=== PATIENT | female | born 1950 | race Caucasian/White ===

== ENCOUNTER 2016-05-26 09:59 | Outpatient (CLI) | payer MEDICARE | END 2016-05-26 10:00 | disposition home or self-care (01) | DX: M85.80 Other specified disorders of bone density and structure, unspecified site (principal) ==

== ENCOUNTER 2016-08-24 10:09 | Outpatient (CLI) | payer MEDICARE | END 2016-08-24 10:10 | disposition home or self-care (01) | DX: M51.34 Other intervertebral disc degeneration, thoracic region (principal); M41.84 Other forms of scoliosis, thoracic region ==

== ENCOUNTER 2016-11-02 12:54 | Outpatient (CLI) | payer MEDICARE ==
--- NOTE | 2016-11-03 11:46 | DEXA Report ---
DEXA SCAN: 11/02/2016 CLINICAL INDICATION: Osteopenia. TECHNIQUE: Dual energy x-ray absorptiometry (DXA) was performed on a [employer] system. Regions measured are the AP spine, femoral neck, and, if needed, forearm. COMPARISON: None. In accordance with the International Society for Clinical Densitometry (ISCD) guidelines, data from previous exams may be reanalyzed using current recommendations and techniques. This is done to allow a more accurate basis for comparison with the current study. FINDINGS: The data for the lumbar spine is as follows: REGION BMD (g/cm/cm) T-SCORE Z-SCORE L1 0.783 -2.9 -1.6 L2 0.963 -2.0 -0.7 L3 0.936 -2.2 -0.9 L4 0.984 -1.8 -0.5 TOTAL 0.923 -2.1 -0.8 NOTE: All evaluable vertebrae are used for classification. The data for the hip is as follows: REGION BMD (g/cm/cm) T-SCORE Z-SCORE Neck 0.839 -1.4 -0.1 TOTAL 0.835 -1.4 -0.3 NOTE: The femoral neck or total proximal femur, whichever is lowest, is used for classification. IMPRESSION: THE WHO CLASSIFICATION BASED ON THE INTERNATIONAL REFERENCE STANDARD IS OSTEOPENIA. THE FRACTURE RISK IS INCREASED. RECOMMENDATION: Patients with diagnosis of osteoporosis or osteopenia should have regular bone mineral density assessment. For those eligible for Medicare, routine testing is allowed once every 2 years. Testing frequency can be increased for patients who have rapidly progressing disease or for those who are receiving medical therapy to restore bone mass. COMMENT: World Health Organization (WHO) definitions for osteoporosis and osteopenia: NORMAL BMD: T-score at -1.0 or higher, fracture risk is low. OSTEOPENIA BMD: T-score between -1.0 and -2.5, fracture risk is increased. OSTEOPOROSIS BMD: T-score at -2.5 or lower, fracture risk high. National Osteoporosis Foundation recommends: 1. Obtain adequate dietary calcium (at least 1200 mg per day) and vitamin D (400 -800 international units per day). 2. Participate, as appropriate, in regular weightbearing and muscle- strengthening exercise. 3. Avoid tobacco use and reduce alcohol and caffeine intake. 4. For more detailed information see the website at www.NOF.org. MTDD
== END 2016-11-02 12:55 | disposition home or self-care (01) ==
LOC: DI 12:54
PROVIDERS: ATTEND Registered Nurse
DX: M85.89 Other specified disorders of bone density and structure, multiple sites (principal)
CPT/HCPCS: 77080

== ENCOUNTER 2019-10-29 10:47 | Outpatient (CLI) | payer MEDICARE ==
--- NOTE | 2019-10-29 12:20 | DEXA Report ---
Reason: DISORDER OF BONE Procedure Date: 10/29/2019 Accession Number: [id number] / [id number] Procedure: DEX - Dexa Spine and/or Hip CPT Code: Final Report FULL RESULT: PROCEDURE: Dexa Spine and/or Hip INDICATIONS: DISORDER OF BONE TECHNIQUE: Dual energy x-ray absorptiometry (DXA) was performed on a [employer] System. Regions measured are the AP Spine, femoral neck, and if needed forearm. COMPARISON: DEXA 07/05/2016 FINDINGS: Lumbar Spine: Bone Mineral Density 0.832 g/cm/cm,T score -2.9, compared to -2.1 on prior exam Left Hip: Bone Mineral Density 0.797 g/cm/cm,T score -1.7, compared to -1.4 on prior exam. Left Femoral Neck: Bone Mineral Density 0.720 g/cm/cm, T score -2.3, compared to -1.4 on prior exam. (T score greater or equal to -1.0: NORMAL) (T score from -1.1 to -2.4: OSTEOPENIA) (T score less than or equal to -2.5 to: OSTEOPOROSIS) Impression: 1. Progressive osteoporosis within the lumbar spine. 2. Progressive osteopenia within the left hip and neck with borderline osteoporosis in the left femoral neck. Patients with diagnosis of osteoporosis or osteopenia should have regular bone mineral density assessment. For those eligible for Medicare, routine testing is allowed once every 2 years. Testing frequency can be increased for patients who have rapidly progressing disease or for those who are receiving medical therapy to restore bone mass. Reviewed by: Myrna Armando MD on 10/29/2019 12:18 PM PDT Approved by: Myrna Armando MD on 10/29/2019 12:18 PM PDT Station ID: [id number]
--- NOTE | 2019-10-29 14:20 | DEXA Report ---
Reason: BONE DISORDER Procedure Date: 10/29/2019 Accession Number: [id number] / [id number] Procedure: DEX - Dexa Spine and/or Hip CPT Code: Final Report FULL RESULT: PROCEDURE: Dexa Spine and/or Hip INDICATIONS: BONE DISORDER TECHNIQUE: Dual energy x-ray absorptiometry (DXA) was performed on a [employer] System. Regions measured are the AP Spine, femoral neck, and if needed forearm. COMPARISON: 10/29/2019 FINDINGS: Lumbar Spine: Bone Mineral Density 0.832 g/cm/cm,T score -2.9, compared to -2.1 on prior exam. Left Hip: Bone Mineral Density 0.797 g/cm/cm,T score -1.7, compared to -1.4 on prior exam. Left Femoral Neck: Bone Mineral Density 0.720 g/cm/cm, T score -2.3, compared to -1.4 on prior exam (T score greater or equal to -1.0: NORMAL) (T score from -1.1 to -2.4: OSTEOPENIA) (T score less than or equal to -2.5 to: OSTEOPOROSIS) Impression: 1. Progression from osteopenia to osteoporosis of the lumbar spine. 2. Mild progression of osteopenia within the left femoral hip. 3. Moderate progression of osteopenia, borderline osteoporosis of the left femoral neck. Patients with diagnosis of osteoporosis or osteopenia should have regular bone mineral density assessment. For those eligible for Medicare, routine testing is allowed once every 2 years. Testing frequency can be increased for patients who have rapidly progressing disease or for those who are receiving medical therapy to restore bone mass. Reviewed by: Myrna Armando MD on 10/29/2019 2:18 PM PDT Approved by: Myrna Armando MD on 10/29/2019 2:18 PM PDT Station ID: [id number]
== END 2019-10-29 10:48 | disposition home or self-care (01) ==
LOC: DI 10:47
PROVIDERS: ATTEND Registered Nurse
DX: M81.0 Age-related osteoporosis without current pathological fracture (principal); M85.88 Other specified disorders of bone density and structure, other site
CPT/HCPCS: 77080

== ENCOUNTER 2020-02-28 11:53 | Outpatient (CLI) | payer MEDICARE | END 2020-02-28 23:59 | disposition home or self-care (01) | LOC: LAB.R 11:53 | PROVIDERS: ATTEND Physician Assistant Medical | DX: N39.0 Urinary tract infection, site not specified (principal); R30.0 Dysuria | CPT/HCPCS: 87086 ==

== ENCOUNTER 2020-12-22 08:00 | Outpatient (CLI) | payer MEDICARE | END 2020-12-22 23:59 | disposition home or self-care (01) | LOC: LAB.S 08:00 | PROVIDERS: ATTEND Physician Assistant | DX: R30.0 Dysuria (principal); N39.0 Urinary tract infection, site not specified | CPT/HCPCS: 87086 ==

== ENCOUNTER 2021-03-09 11:34 | Outpatient (CLI) | payer MEDICARE ==
--- NOTE | 2021-03-09 14:58 | CT Report ---
PROCEDURE: Abdomen/Pelvis WO INDICATIONS: HEMATURIA TECHNIQUE: Noncontrast 5 mm thick sections acquired from the diaphragms to the symphysis. 5 mm coronal and sagi ttal reformats were then performed. For radiation dose reduction, the following was used: automated exposure control, adjustment of mA and/or kV according to patient size. COMPARISON: None. FINDINGS: Image quality: Excellent. ABDOMEN: Lung bases: Lung bases are clear. Heart size is normal. Partially imaged breast implants. Small hi atal hernia. Solid organs: Liver and spleen are normal in size. Gallbladder is decompressed. No calcification. Pancreas is normal in contours. No adrenal nodules. There is cast-like calcification filling the lower pole calyces on the left measuring about 1.0 x 0.6 x 0.5 cm. No hydronephrosis. No right-sided urinary calcifications. No ureteral calcifications or hy droureter. Peritoneum and bowel: Diverticulosis is seen throughout the colon, particularly extensive in the dis eamon descending and sigmoid colon. There are no pericolonic inflammatory changes. Normal appendix is p resent. Unenhanced small bowel loops demonstrate normal wall thickness and caliber. No free fluid or air. Nodes and vessels: No retroperitoneal or mesenteric adenopathy by size criteria. Aorta and inferior vena cava are normal in caliber. Miscellaneous: No ventral hernias. PELVIS: Genitourinary: Bladder wall thickness is normal. Punctate focus of gas anteriorly and urinary bladd er, nonspecific. Uterus and ovaries are age-appropriate. No suspicious adnexal masses or fluid collec tions. Miscellaneous: No inguinal hernias or adenopathy. Bones: No suspicious bony lesions. No vertebral body compression fractures. Severe degenerative fa cet arthropathy in the lower lumbar spine. Grade 1 anterolisthesis L5 on S1. IMPRESSION: 1. Nonobstructing 1.0 cm left lower pole intrarenal calcification. 2. No evidence of obstructive uropathy. 3. Diverticulosis. Reviewed by: Tory Prescott MD on 03/09/2021 2:56 PM PDT Approved by: Tory Prescott MD on 03/09/2021 2:56 PM PDT Station ID: [id number]
== END 2021-03-09 11:35 | disposition home or self-care (01) ==
LOC: DI 11:34
PROVIDERS: ATTEND Registered Nurse
DX: R31.29 Other microscopic hematuria (principal); N28.89 Other specified disorders of kidney and ureter; K57.30 Diverticulosis of large intestine without perforation or abscess without bleeding

== ENCOUNTER 2021-03-14 08:00 | Outpatient (CLI) | payer MEDICARE ==
[2021-03-14 18:18] LABS: BILIRUBIN,URINE NEGATIVE (NEGATIVE); GLUCOSE, URINE (UA) NEGATIVE (NEGATIVE); KETONES,URINE (UA) NEGATIVE (NEGATIVE); LEUKOCYTE ESTERASE, URINE NEGATIVE (NEGATIVE); NITRITE,URINE NEGATIVE (NEGATIVE); OCCULT BLOOD,URINE TRACE-INTA (NEGATIVE); PH,URINE 6.5 PH (5.0-7.5); PROTEIN,URINE NEGATIVE (NEGATIVE); UROBILINOGEN,URINE 0.2 (NORMAL) E.U./dL (NORMAL)
[2021-03-14 18:22] LABS: CLARITY,URINE CLEAR (CLEAR)
[2021-03-14 18:30] LABS: BACTERIA,URINE Rare /HPF (None Seen); RBC,URINE 0-5 /HPF (0-5); SQUAMOUS EPITHELIAL CELL,UR NONE SEEN (<= Few)
== END 2021-03-14 23:59 | disposition home or self-care (01) ==
LOC: LAB.S 08:00
PROVIDERS: ATTEND Emergency Medicine
DX: R30.0 Dysuria (principal)
CPT/HCPCS: 81001; 87086

== ENCOUNTER 2021-06-08 10:13 | Outpatient (CLI) | payer MEDICARE ==
--- NOTE | 2021-06-08 13:06 | XRAY Report ---
PROCEDURE: Abdomen 1 View X-Ray INDICATIONS: HX OF UTI TECHNIQUE: 1 view of the abdomen were acquired. COMPARISON: None FINDINGS: Surgical changes and devices: None. Bowel: No pneumoperitoneum. The bowel gas pattern is normal. Soft tissues: No masses; visualized solid organ contours appear normal in size. There are multiple pelvic phleboliths. The right kidney has a 3 mm calcification projecting over the superior pole. The left kidney has a 1.2 x 0.5 cm calcification projecting over the lower pole. Bones: No suspicious bony abnormalities. There are degenerative changes in the lumbar spine. Degene rative disc disease at L5-S1. IMPRESSION: 1. 1.2 x 0.5 cm calcification projecting over the lower pole of the left kidney corresponds with a st one seen on 03/09/2021 CT. 2. 3 mm calcification projecting over the superior pole of the right kidney possibly a nonobstructive stone. 3. No stones along the expected course of the ureters. Reviewed by: Gerard Oneal on 06/08/2021 1:05 PM PST Approved by: Gerard Oneal on 06/08/2021 1:05 PM PST Station ID: [id number]
== END 2021-06-08 10:14 | disposition home or self-care (01) ==
LOC: DI 10:13
PROVIDERS: ATTEND Urology
DX: R31.29 Other microscopic hematuria (principal); N20.0 Calculus of kidney; Z87.440 Personal history of urinary (tract) infections

== ENCOUNTER 2023-09-15 10:32 | Outpatient (CLI) | payer MEDICARE ==
--- NOTE | 2023-09-15 14:05 | XRAY Report ---
PROCEDURE: Abdomen 1 V INDICATIONS: HX OF KIDNEY STONES TECHNIQUE: One view of the abdomen acquired. COMPARISON: Abdominal radiographs 06/08/2021, CT abdomen/pelvis 03/09/2021 FINDINGS: Surgical changes and devices: None. Bowel: Bowel gas pattern is normal. Soft tissues: Suspected 4 mm calcification projecting over the superior right kidney and a 6 mm calcu [place]umb[place] projecting over the inferior left kidney. Left paraspinal 13 mm calcification is new when compare d to the prior exam. Visualized solid organ contours appear normal in size. Bones: No suspicious bony lesions. IMPRESSION: 1.Calcification measuring 13 mm projecting over the left paraspinal region could represent a left ure teral calculus. CT KUB could be performed for further evaluation if indicated clinically. 2.Suspected bilateral renal calculi. Reviewed by: Shay Pérez MD on 09/15/2023 2:04 PM PDT Approved by: Shay Pérez MD on 09/15/2023 2:04 PM PDT Station ID: [id number]
== END 2023-09-15 10:33 | disposition home or self-care (01) ==
LOC: DI 10:32
PROVIDERS: ATTEND Urology
DX: Z87.442 Personal history of urinary calculi (principal)

== ENCOUNTER 2023-10-14 15:49 | Outpatient (CLI) | payer MEDICARE | END 2023-10-14 15:50 | disposition home or self-care (01) | LOC: LAB 15:49 | PROVIDERS: ATTEND Urology | DX: R30.0 Dysuria (principal) | CPT/HCPCS: 87086; 87181 ==

== ENCOUNTER 2023-11-04 10:13 | Outpatient (CLI) | payer MEDICARE ==
[2023-11-04 14:57] LABS: BILIRUBIN,URINE NEGATIVE (NEGATIVE); GLUCOSE, URINE (UA) NEGATIVE (NEGATIVE); KETONES,URINE (UA) NEGATIVE (NEGATIVE); LEUKOCYTE ESTERASE, URINE LARGE (NEGATIVE); NITRITE,URINE POSITIVE (NEGATIVE); OCCULT BLOOD,URINE LARGE (NEGATIVE); PROTEIN,URINE NEGATIVE (NEGATIVE); UROBILINOGEN,URINE 0.2 (NORMAL) E.U./dL (NORMAL)
[2023-11-04 15:05] LABS: BACTERIA,URINE Moderate /HPF (None Seen); CLARITY,URINE CLOUDY (CLEAR); RBC,URINE TNTC /HPF (0-5); SQUAMOUS EPITHELIAL CELL,UR RARE Squamous (<= Few); WBC,URINE >25 /HPF (0-5)
== END 2023-11-04 10:14 | disposition home or self-care (01) ==
LOC: LAB.S 10:13
PROVIDERS: ATTEND Urology
DX: N13.2 Hydronephrosis with renal and ureteral calculous obstruction (principal)
CPT/HCPCS: 81001; 87086; 87181

== ENCOUNTER 2023-11-07 08:11 | Day surgery (SDC) | payer MEDICARE ==
[~2023-11-07 08:11] MED LIST: CIPROFLOXACIN 400 MG/200 ML 400 MG/200 ML BAG IV ONE
[2023-11-07] MEDS: LACTATED RINGERS 1,000 ML IV ONE ×2 (08:22→10:29)
--- NOTE | 2023-11-07 08:52 | ANESTHESIA ---
Pre-Anesthesia VS, & Labs - Diagnosis left kidney stones - Procedure left cysto, ureteroscopy, laser lithotripsy and stent Vital Signs: Temp Pulse Resp BP Pulse Ox O2 Flow Rate 36.6 C 97 15 153/85 H 99 11/07/23 08:26 11/07/23 08:26 11/07/23 08:26 11/07/23 08:26 11/07/23 08:26 Height: 5 ft 4 in Weight (kg): 75.6 kg Body Mass Index: 28.5 BMI Classification: Overweight - NPO >8 hours - Is Patient ?: No Home Medications and Allergies Atorvastatin Calcium 1 tab PO HS 07/06/17 Cholecalciferol (Vitamin D3) [Vitamin D3] 125 mcg PO HS 07/06/17 Levothyroxine Sodium 1 tab PO DAILY 07/06/17 Montelukast [Singulair] 1 tab PO HS 07/06/17 Valacyclovir HCl [Valtrex] 1 tab PO HS 07/06/17 Risedronate Sodium [Actonel] 35 tab PO OAW 04/16/20 amLODIPine [Norvasc] 2.5 mg PO HS 04/22/21 Albuterol Sulf [Ventolin Hfa Inhaler] 1 - 2 puffs INH Q4HR PRN 09/22/23 Cranberry Fruit Extract [Cranberry] 500 mg PO HS 09/22/23 D-Mannose [Azo D-Mannose] 500 mg PO HS 09/22/23 Multivitamin 1 each PO HS 09/22/23 Allergies/Adverse Reactions: Allergies Allergy/AdvReac Type Severity Reaction Status Date / Time clindamycin Allergy Unknown Verified 09/22/23 10:40 erythromycin base Allergy Unknown Verified 09/22/23 10:40 latex Allergy Edema Verified 10/21/21 13:40 losartan Allergy Anaphylaxis Verified 09/22/23 10:40 Penicillins Allergy Unknown Verified 10/21/21 13:40 Anes History & Medical History - Anesthetic History Anesthesia Complications: reports: No previous complications - Medical History Cardiovascular: reports: Hypertension Pulmonary: reports: Asthma (allergy induced) Gastrointestinal: reports: GERD Urinary: reports: Kidney stones Musculoskeletal: reports: Osteoarthritis, Scoliosis, Chronic back pain Endocrine/Autoimmune: reports: HyPOthyroidism Blood Disorders: reports: None Skin: reports: None Smoking Status: Never smoker Psychosocial: reports: Alcohol (occasional wine, none for months) - Surgical History General: reports: Colonoscopy Gynecologic: reports: Mastectomy Exam General: Alert, Oriented x3 Dental: WNL Mouth Opening: Greater than 4 Fingerbreadths Neck Mobility: Normal Mallampati classification: II Thyromental Distance: greater than 6 cm Respiratory: Lungs clear Cardiovascular: Regular rate, Normal S1, Normal S2 Plan Anesthesia Type: General Consent for Procedure(s) Verified and Reviewed: Yes Code Status: Attempt Resuscitation ASA classification: 2-Mild systemic disease Is this case an emergency?: No
[2023-11-07] MEDS ORDERED: NALOXONE 0.4 MG/ML VIAL IVP PRN (08:57)
[2023-11-07] MEDS ORDERED: MORPHINE 2 MG/ML CARPUJECT IVP PRN (08:57)
[2023-11-07] MEDS ORDERED: METOCLOPRAMIDE 10 MG/2 ML VIAL IVP PRN (08:57)
[2023-11-07] MEDS ORDERED: HYDROmorphone 0.5 MG/0.5 ML SYRINGE IVP PRN (08:57)
[2023-11-07] MEDS ORDERED: ATROPINE ABBOJECT 1 MG/10 ML SYRINGE IVP PRN (08:57)
[2023-11-07] MEDS ORDERED: ePHEDrine 50 MG/ML VIAL IVP PRN (08:57)
[2023-11-07] MEDS ORDERED: LACTATED RINGERS 1,000 ML IV SCH (09:00)
[2023-11-07] MEDS ORDERED: SCOPOLAMINE PATCH TOP ONE (09:02)
[2023-11-07] MEDS ORDERED: fentaNYL 100 MCG/2 ML VIAL ONE ×2 (09:09→10:58)
[2023-11-07] MEDS ORDERED: PROPOFOL 200 MG/20 ML VIAL IVP ONE (09:09)
[2023-11-07] MEDS ORDERED: ROCURONIUM 50 MG/5 ML VIAL ONE (09:09)
[2023-11-07] MEDS ORDERED: LIDOCAINE-PF 2% 10 ML AMP SUBQ ONE (09:10)
[2023-11-07] MEDS: LIDOCAINE 2% URO-JET 5 ML SYRINGE UR ONE (09:44)
[2023-11-07] MEDS: iohexoL-240 10 ML VIAL IVP ONE (09:44)
[2023-11-07] MEDS ORDERED: ePHEDrine 50 MG/ML VIAL IVP ONE (09:49)
[2023-11-07] MEDS ORDERED: ACETAMINOPHEN 1,000 MG/100 ML 1,000 MG/100 ML BAG IV ONE (09:49)
[2023-11-07] MEDS ORDERED: KETOROLAC 30 MG/ML VIAL ONE (10:12)
[2023-11-07] MEDS ORDERED: SUGAMMADEX 200 MG/2 ML VIAL IVP ONE (10:15)
[2023-11-07] MEDS ORDERED: HYDROcod/ACETAM 5/325 MG TABLET PO PRN (10:30)
[2023-11-07] MEDS ORDERED: ONDANSETRON 4 MG/2 ML VIAL IVP PRN (10:30)
[2023-11-07] MEDS ORDERED: LIDOCAINE 2% URO-JET 5 ML SYRINGE UR ONE (10:37)
[2023-11-07] MEDS ORDERED: ONDANSETRON 4 MG/2 ML VIAL ONE (10:51)
[2023-11-07] MEDS: ONDANSETRON 4 MG/2 ML VIAL IVP PRN (10:56)
--- NOTE | 2023-11-07 10:59 | Discharge Plan ---
Discharge Plan Problem Reviewed?: Yes Disposition: Home, Self Care Condition: Good Prescriptions: Ciprofloxacin HCl 1 tablet PO ONCE 1 Days #1 tablet Docusate Sodium 100Mg Capsule [Colace 100Mg Capsule] 100 mg PO DAILY #14 cap oxyCODONE [Roxicodone] 5 mg PO Q4H PRN #10 tablet PRN Reason: Pain Diet: Regular Activity Restrictions: No Restrictions Shower Restrictions: No Driving Restrictions: No Instruction Topics: Stents Ureteral Additional Instructions or Follow Up instructions: Your stent needs to be in place for 3 to 4 weeks after this procedure and so you will be contacted to reschedule your appointment from November 15 to later in the month. Please take antibiotic as instructed on the way to the appointment No Smoking: If you smoke, Please STOP! Call for help. Follow-up with: Cassandra Cantrell ARNP [Primary Care Provider] - Peter Blackburn MD [Provider Admit Priv/Credential] -
[2023-11-07] MEDS: fentaNYL 100 MCG/2 ML VIAL IVP PRN (11:01)
--- NOTE | 2023-11-07 11:04 | OPERATIVE REPORT ---
Operative Report - General Procedure Date: 11/07/23 Planned Procedure: Cystoscopy, left ureteroscopy, laser lithotripsy, stent Pre-Op Diagnosis: Left ureteral stone Procedure Performed: Cystoscopy, left ureteroscopy, laser lithotripsy, stent Post Op Diagnosis: Left ureteral stone - Procedure Note Primary Surgeon: Alexey Anesthesia Provider: TYREL Gardiner Anesthesia Technique: General LMA Pathology: left ureteral stone Estimated Blood Loss (mL): 0 Indications: Left ureteral stone Findings: Embedded large left proximal ureteral stone Complications: none - Other Other Information/Narrative: After informed sent was obtained the patient was brought to the OR and laid in supine position. The patient was Necaise per anesthesia protocols and prepped draped in usual sterile fashion. A formal timeout was performed reconfirming the patient, procedure and laterality. A 22 [place] scope was advanced easily into urinary bladder. Bladder was inspected in full and there were no masses, lesions or other concerns. Fluoroscopy showed a weakly radiopaque large stone in the proximal ureter just cranial to the pelvic bones. With some difficulty a sensor wire was able to pass beyond this. The distal ureter was then dilated with a 810 dilator. We then used a 12/14 ureteral access sheath up into the proximal ureter just distal to the stone. A flexible ureteroscope was advanced up to the stone. The stone itself was yellow and crystalline. It was quite embedded in the wall. Using a 200 m laser fiber at a power of 0.8 and a rate of 8 we dusted the stone. With much difficulty we were able to get the stone off of the ureteral wall. We could then move more proximally and see that she had a widely dilated ureteral system proximal to this. She has a another stone which is in the left lower pole of her kidney this was also weakly radiopaque but could be seen on fluoroscopy. We could not get around the corner to directly visualize the stone and so was left in place. Her ureter was cleared and there were no more stone seen. There was no stone seen on fluoroscopy in her ureter. We then placed a 6 [place] 24 cm stent with good curling noted in the kidney and good curling of the bladder under fluoroscopic and cystoscopic guidance. A Uro-Jet was placed. Some stone debris dust was sent for analysis. She will go home today and plan to have the stent removed in 3 to 4 weeks. All counts were correct
[2023-11-07 12:10] VITALS: BP 112/75; O2SAT 96
--- NOTE | 2023-11-07 13:43 | ANESTHESIA POST OP EVALUATION ---
Anesthesia Post Eval - Post Anesthesia Eval Vitals: Last Vital Signs Temp 36.7 C 11/07/23 11:24 Pulse 63 11/07/23 11:59 Resp 14 11/07/23 11:59 BP 112/75 11/07/23 11:59 Pulse Ox 96 11/07/23 11:59 O2 Flow Rate CV Function Including HR & BP: Stable Pain Control: Satisfactory Nausea & Vomiting: Negative Mental Status: Baseline Respiratory Status: Airway Patent Hydration Status: Satisfactory Anesthesia Complications: None
--- NOTE | 2023-11-07 15:17 | XRAY Report ---
PROCEDURE: OR C-Arm Procedure INDICATIONS: STENT PLACEMENT FLUORO TIME: 0.7 MIN TECHNIQUE: Intraoperative fluoroscopy for stent placement. COMPARISON: None. FINDINGS: Intraoperative images demonstrate a catheter projecting over wire from the caudal aspect of the left abdomen and subsequently deployment of the pigtail catheter. IMPRESSION: Intraoperative fluoroscopy for left stent placement. Correlate with intraoperative intervention. Reviewed by: Tory Prescott MD on 11/07/2023 3:15 PM PDT Approved by: Tory Prescott MD on 11/07/2023 3:15 PM PDT Station ID: [id number]
== END 2023-11-07 08:12 | disposition home or self-care (01) ==
LOC: SDS 08:11
PROVIDERS: ATTEND Urology
PROC: 0T778DZ Dilation of Left Ureter with Intraluminal Device, Via Natural or Artificial Opening Endoscopic (ICD-10-PCS; 2023-11-07)
PROC: 0TC78ZZ Extirpation of Matter from Left Ureter, Via Natural or Artificial Opening Endoscopic (ICD-10-PCS; principal; 2023-11-07 09:45)
DX: N13.2 Hydronephrosis with renal and ureteral calculous obstruction (principal); I10 Essential (primary) hypertension
CPT/HCPCS: 52356; 82365; C1758; C2617; J0131; J3490; J7120; Q9966

== ENCOUNTER 2023-11-07 13:41 | Outpatient (CLI) | payer MEDICARE | END 2023-11-07 13:42 | disposition home or self-care (01) | LOC: LAB.R 13:41 | PROVIDERS: ATTEND Registered Nurse | DX: N20.1 Calculus of ureter (principal) | CPT/HCPCS: 82365 ==

== ENCOUNTER 2023-11-21 14:11 | Outpatient (CLI) | payer MEDICARE ==
[2023-11-21 20:31] LABS: BILIRUBIN,URINE NEGATIVE (NEGATIVE); GLUCOSE, URINE (UA) NEGATIVE (NEGATIVE); KETONES,URINE (UA) NEGATIVE (NEGATIVE); LEUKOCYTE ESTERASE, URINE LARGE (NEGATIVE); NITRITE,URINE POSITIVE (NEGATIVE); OCCULT BLOOD,URINE SMALL (NEGATIVE); PROTEIN,URINE NEGATIVE (NEGATIVE); UROBILINOGEN,URINE 0.2 (NORMAL) E.U./dL (NORMAL)
[2023-11-21 20:36] LABS: CLARITY,URINE CLOUDY (CLEAR)
[2023-11-21 20:59] LABS: RBC,URINE 0-5 /HPF (0-5)
[2023-11-21 21:02] LABS: BACTERIA,URINE Many /HPF (None Seen); SQUAMOUS EPITHELIAL CELL,UR NONE SEEN (<= Few)
== END 2023-11-21 14:12 | disposition home or self-care (01) ==
LOC: LAB.S 14:11
PROVIDERS: ATTEND Urology
DX: R30.0 Dysuria (principal)
CPT/HCPCS: 81001; 87086

== ENCOUNTER 2023-12-09 13:44 | Outpatient (CLI) | payer MEDICARE ==
[2023-12-09 19:54] LABS: BILIRUBIN,URINE NEGATIVE (NEGATIVE); GLUCOSE, URINE (UA) NEGATIVE (NEGATIVE); KETONES,URINE (UA) NEGATIVE (NEGATIVE); LEUKOCYTE ESTERASE, URINE LARGE (NEGATIVE); NITRITE,URINE NEGATIVE (NEGATIVE); OCCULT BLOOD,URINE TRACE-LYSE (NEGATIVE); PROTEIN,URINE NEGATIVE (NEGATIVE); UROBILINOGEN,URINE 0.2 (NORMAL) E.U./dL (NORMAL)
[2023-12-09 19:55] LABS: CLARITY,URINE HAZY (CLEAR)
[2023-12-09 20:04] LABS: WBC,URINE >25 /HPF (0-5)
[2023-12-09 20:05] LABS: BACTERIA,URINE Moderate /HPF (None Seen); RBC,URINE 0-5 /HPF (0-5); SQUAMOUS EPITHELIAL CELL,UR RARE Squamous (<= Few)
== END 2023-12-09 13:45 | disposition home or self-care (01) ==
LOC: LAB.S 13:44
PROVIDERS: ATTEND Urology
DX: R30.0 Dysuria (principal)
CPT/HCPCS: 81001; 87086; 87181